=== PATIENT | female | born 1990 | race Caucasian/White ===

== ENCOUNTER → 2018-06-29 | Outpatient (CLI) | payer OTHER ==
[~2018-06-29] MED LIST: NONE PER PT
[2018-06-29 10:05] LABS: MEAN CORPUSCULAR HEMOGLOBIN 29.3 pg (27.0-34.8); MEAN CORPUSCULAR HGB CONC 33.1 g/dL (32.4-35.8); MEAN CORPUSCULAR VOLUME 88.5 fL (80-100); MEAN PLATELET VOLUME 7.5 fL (7.4-10.4); PLATELET COUNT 310 x10^3/uL (130-400); RED BLOOD COUNT 4.72 x10^6/uL (3.82-5.3); RED CELL DISTRIBUTION WIDTH 13.5 % (9.6-15.2)
== END | disposition home or self-care (01) ==
LOC: STAR 09:13
PROVIDERS: ATTEND Obstetrics & Gynecology Gynecology
DX: Z01.818 Encounter for other preprocedural examination (principal); N92.0 Excessive and frequent menstruation with regular cycle; N94.6 Dysmenorrhea, unspecified; R10.2 Pelvic and perineal pain
CPT/HCPCS: 36415; 84703; 85027

== ENCOUNTER 2018-07-09 08:26 | Observation (INO) | payer OTHER ==
[~2018-07-09] VITALS: Ht 162.6 cm; Wt 72.8 kg
[2018-07-09 08:46] VITALS: BP 115/74
[2018-07-09] MEDS ORDERED: LACTATED RINGERS 1,000 ML IV SCH (08:54)
[2018-07-09] MEDS ORDERED: ACETAMINOPHEN 500 MG TABLET ONE (08:59)
[2018-07-09] MEDS ORDERED: hydrALAzine 20 MG/ML, 1ML IV PRN (09:00)
[2018-07-09] MEDS ORDERED: PROCHLORPERAZINE 5 MG/ML, 2ML IV PRN (09:00)
[2018-07-09] MEDS ORDERED: FENTANYL PF 100 MCG/2ML IV PRN (09:00)
[2018-07-09] MEDS ORDERED: ACETAMINOPHEN 500 MG TABLET PO ONE (09:00)
[2018-07-09] MEDS ORDERED: DIPHENHYDRAMINE 50 MG/ML, 1ML IVPush PRN (09:00)
[2018-07-09] MEDS ORDERED: MEPERIDINE/PF 25MG/0.5ML IVPush PRN (09:00)
[2018-07-09] MEDS ORDERED: GABAPENTIN 300 MG CAPSULE PO ONE (09:00)
[2018-07-09] MEDS ORDERED: LABETALOL 5MG/ML, 20ML IV PRN (09:00)
[2018-07-09 09:14] LABS: HCG UR SG 1.025 (1.003-1.030)
[2018-07-09] MEDS ORDERED: FENTANYL PF 250 MCG/5ML ONE (09:39)
[2018-07-09] MEDS ORDERED: ESTROGENS CONJUGATED VAG CRM 0.625MG/1G, 30GM ONE (10:07)
[2018-07-09] MEDS ORDERED: BUPIVACAINE/PF-EPI 0.25% 1:200K ONE (10:07)
[2018-07-09] MEDS ORDERED: FLUORESCEIN SODIUM 500 MG/5 ML ONE (10:07)
[2018-07-09] MEDS ORDERED: MIDAZOLAM 1 MG/ML, 2ML ONE (10:14)
[2018-07-09] MEDS ORDERED: INDIGO CARMINE 0.8%, 5ML ONE (11:13)
[2018-07-09] MEDS ORDERED: ROCURONIUM 10MG/ML,5ML ONE (12:06)
[2018-07-09] MEDS ORDERED: ONDANSETRON 2MG/ML, 2ML ONE (12:06)
[2018-07-09] MEDS ORDERED: DEXAMETHASONE 4 MG/ML, 1ML ONE (12:06)
[2018-07-09] MEDS ORDERED: CEFAZOLIN 1,000 MG ONE (12:06)
[2018-07-09] MEDS ORDERED: PROPOFOL 10 MG/ML, 20ML ONE (12:06)
[2018-07-09] MEDS ORDERED: SUCCINYLCHOLINE 20 MG/ML, 10ML ONE (12:06)
[2018-07-09] MEDS ORDERED: NEOSTIGMINE 1 MG/ML, 10ML ONE (12:06)
[2018-07-09] MEDS ORDERED: GLYCOPYRROLATE 0.2MG/1ML, 5ML ONE (12:06)
[2018-07-09] MEDS ORDERED: HYDROmorphone 2 MG/ML, 1ML ONE (13:01)
[2018-07-09] MEDS ORDERED: FENTANYL PF 100 MCG/2ML ONE (13:01)
[2018-07-09] MEDS: HYDROmorphone 1 MG/ML, 1ML IV PRN ×2 (13:10→13:22)
[2018-07-09] MEDS ORDERED: PROMETHAZINE 12.5 MG SUPP PR ONE (17:10)
[2018-07-09] MEDS ORDERED: PROMETHAZINE 12.5 MG SUPP PR PRN ×2 (17:30)
[2018-07-09] MEDS ORDERED: IBUPROFEN 600 MG TABLET ONE (17:40)
[2018-07-09] MEDS ORDERED: IBUPROFEN 600 MG TABLET PO SCH (18:00)
[2018-07-09] MEDS ORDERED: morphine SULFATE 10 MG/ML, 1ML IV PRN (19:30)
[2018-07-09] MEDS ORDERED: OXYcodone/APAP 5/325MG TABLET PO PRN (19:30)
[2018-07-09] MEDS ORDERED: ACETAMINOPHEN 325 MG TABLET PO PRN (19:30)
[2018-07-09] MEDS ORDERED: ONDANSETRON 2MG/ML, 2ML IV PRN (19:30)
[2018-07-09] MEDS ORDERED: ACETAMINOPHEN 650 MG SUPP PR PRN (19:30)
[2018-07-09 20:22] VITALS: BP 104/69
[2018-07-09] MEDS: IBUPROFEN 200 MG TABLET PO SCH (21:00)
[2018-07-09] MEDS: IBUPROFEN 600 MG TABLET PO SCH (23:42)
[2018-07-10 00:15] VITALS: BP 104/69
[2018-07-10 04:20] VITALS: BP 101/63
[2018-07-10] MEDS: IBUPROFEN 200 MG TABLET PO SCH (06:00)
[2018-07-10] MEDS: IBUPROFEN 600 MG TABLET PO SCH (06:02)
[2018-07-10 08:22] VITALS: BP 107/73
[2018-07-10] MEDS ORDERED: HYDR-3653 PO (10:02)
[2018-07-10 10:14] VITALS: BP 107/71
== END 2018-07-10 10:25 | disposition home or self-care (01) ==
LOC: OUT 08:26 → ORIP 17:08 → 4NOR 18:00
PROVIDERS: ADMIT Obstetrics & Gynecology Gynecology; ATTEND Obstetrics & Gynecology Gynecology
DX: N92.0 Excessive and frequent menstruation with regular cycle (principal); N80.0 Endometriosis of uterus; G89.29 Other chronic pain; N94.6 Dysmenorrhea, unspecified; R10.2 Pelvic and perineal pain; Z87.440 Personal history of urinary (tract) infections
CPT/HCPCS: 58552; 81025; 88307; G0378; J0330; J0690; J1100; J1170; J2250; J2405; J2704; J2710; J3010; J3490; J7120